=== PATIENT | female | born 1950 | race Caucasian/White ===

== ENCOUNTER 2019-06-20 20:46 | Observation (INO) ==
[2019-06-21 00:48] LABS: Albumin 3.6 G/DL (3.4-5.0); Bilirubin,Total 0.4 MG/DL (0.2-1.0); Calcium 8.6 MG/DL (8.5-10.1); Osmolality,Calculated 294.4 MOS/KG (273-304); Total Protein 7.1 G/DL (6.4-8.3)
[2019-06-21 01:00] LABS: Basophils % 0.1 % (0.0-0.8); Hematocrit 33.9 VOL% (35.7-47.0); Hemoglobin 10.2 GM/DL (12.0-16.0); Immature Granulocytes % 0.6 %; Immature Granulocytes Absolute 0.05 #; Lymphocytes # 2.3 10*3/uL (1.4-4.0); Lymphocytes % 29.3 % (21.3-54.2); Mean Corpuscular HGB Conc 30.1 GM/DL (32-36); Mean Corpuscular Volume 78.1 FL (87-102); Mean Platelet Volume 12.1 FL (9.6-12.0); Monocytes % 7.5 % (1.7-12.7); Neutrophils % 62.5 % (38.7-73.9); Platelet Count 173 T/CUMM (130-400); Red Blood Count 4.34 MC/CUMM (3.8-5.5); Red Cell Distribution Width 16.7 % (9.3-17.3)
[2019-06-21] MEDS ORDERED: MORPHINE 4 MG/1 ML VIAL IV PRN (01:50)
[2019-06-21] MEDS ORDERED: ONDANSETRON 4 MG/2 ML VIAL IV PRN (01:50)
[2019-06-21] MEDS ORDERED: ACETAMINOPHEN 325 MG TABLET PO PRN (01:50)
[2019-06-21] MEDS ORDERED: guaiFENesin 200 MG/10 ML UDCUP PO PRN (02:04)
[2019-06-21] MEDS ORDERED: ALPRAZolam 0.25 MG TABLET PO PRN (02:09)
[2019-06-21] MEDS ORDERED: ALBUTEROL/IPRATROPIUM 3 ML NEB RESP TX PRN (02:09)
[2019-06-21] MEDS ORDERED: SODIUM CHLORIDE 0.9% 1,000 ML IV SCH (02:30)
[2019-06-21] MEDS: ENOXAPARIN 40 MG/0.4 ML SYRINGE SUBCUT SCH (02:42)
[2019-06-21] MEDS ORDERED: traMADol 50 MG TABLET PO PRN (03:20)
[2019-06-21] MEDS ORDERED: NITROGLYCERIN SL 0.4 MG TABLET SL PRN (03:20)
[2019-06-21 03:38] LABS: Risk Ratio 5.13; Thyroid Stimulating Hormone 3.37 uIU/ml (0.358-3.74); VLDL CHOLESTEROL 38.2 MG/DL
[2019-06-21 05:24] LABS: Hematocrit 31.7 VOL% (35.7-47.0); Hemoglobin 9.5 GM/DL (12.0-16.0); Immature Granulocytes % 0.5 %; Immature Granulocytes Absolute 0.03 #; Lymphocytes % 29.9 % (21.3-54.2); Mean Corpuscular Volume 77.3 FL (87-102); Mean Platelet Volume 11.2 FL (9.6-12.0); Neutrophils % 62.6 % (38.7-73.9); Platelet Count 137 T/CUMM (130-400); Red Cell Distribution Width 16.6 % (9.3-17.3); White Blood Count 6.6 T/CUMM (4-12)
[2019-06-21 05:47] LABS: % Iron Saturation 11.6 % (18-50); Ferritin 27.1 ng/ml (8-252)
[2019-06-21] MEDS: LEVOTHYROXINE 100 MCG TABLET PO SCH (05:52)
[2019-06-21 06:26] LABS: Folate 8.2 NG/ML (5.4-24.0); Vitamin B12 354 PG/ML (211-911)
[2019-06-21 06:27] LABS: Sedimentation Rate-Westergren 43 MM/HR (0-30)
[2019-06-21 08:46] LABS: Calcium 8.1 MG/DL (8.5-10.1); Osmolality,Calculated 291.6 MOS/KG (273-304)
[2019-06-21] MEDS: GABAPENTIN 300 MG CAPSULE PO SCH ×2 (08:49→21:21)
[2019-06-21] MEDS: FERROUS SULFATE 325 MG TABLET PO SCH ×2 (08:49→21:21)
[2019-06-21] MEDS: PANTOPRAZOLE 40 MG TABLET PO SCH (08:50)
[2019-06-21] MEDS: METOPROLOL SUCCINATE XL 25 MG TABLET PO SCH (08:50)
[2019-06-21] MEDS: VENLAFAXINE XR 75 MG CAPSULE PO SCH (08:50)
[2019-06-21] MEDS: POTASSIUM CHLORIDE 20 MEQ TABLET PO PRN ×3 (11:45→16:06)
[2019-06-21] MEDS: BENZOCAINE/MENTHOL LOZENGE 18/BOX PO PRN (21:26)
[2019-06-22] MEDS: ENOXAPARIN 40 MG/0.4 ML SYRINGE SUBCUT SCH (01:45)
[2019-06-22 05:32] LABS: Hematocrit 30.4 VOL% (35.7-47.0); Hemoglobin 9.1 GM/DL (12.0-16.0); Immature Granulocytes % 0.6 %; Immature Granulocytes Absolute 0.04 #; Lymphocytes # 1.2 10*3/uL (1.4-4.0); Lymphocytes % 19.2 % (21.3-54.2); Mean Corpuscular HGB Conc 29.9 GM/DL (32-36); Mean Corpuscular Volume 77.4 FL (87-102); Mean Platelet Volume 11.7 FL (9.6-12.0); Monocytes % 8.2 % (1.7-12.7); Platelet Count 128 T/CUMM (130-400); Red Blood Count 3.93 MC/CUMM (3.8-5.5); Red Cell Distribution Width 16.6 % (9.3-17.3); White Blood Count 6.4 T/CUMM (4-12)
[2019-06-22] MEDS: LEVOTHYROXINE 100 MCG TABLET PO SCH (05:40)
[2019-06-22] MEDS: BENZOCAINE/MENTHOL LOZENGE 18/BOX PO PRN (05:42)
[2019-06-22 05:44] LABS: Calcium 7.6 MG/DL (8.5-10.1); Osmolality,Calculated 283.1 MOS/KG (273-304)
[2019-06-22] MEDS: GABAPENTIN 300 MG CAPSULE PO SCH (08:41)
[2019-06-22] MEDS: PANTOPRAZOLE 40 MG TABLET PO SCH (08:42)
[2019-06-22] MEDS: FERROUS SULFATE 325 MG TABLET PO SCH (08:42)
[2019-06-22] MEDS: METOPROLOL SUCCINATE XL 25 MG TABLET PO SCH (08:42)
[2019-06-22] MEDS: VENLAFAXINE XR 75 MG CAPSULE PO SCH (08:42)
[2019-06-22] MEDS ORDERED: FENOFIBRATE 160 MG TABLET PO SCH (09:00)
[2019-06-22] MEDS ORDERED: KETOROLAC 30 MG/1 ML VIAL IV ONE (09:37)
[2019-06-22 11:15] VITALS: BP 109/65
[2019-06-23 10:51] LABS: Hemoglobin A1 (Alkaline) 97.8 % (96.5-98.5); Hemoglobin A2 (Alkaline) 2.2 % (1.5-3.5)
== END 2019-06-22 13:54 | disposition home or self-care (01) ==
LOC: N.TELES → SUATTDRO 23:54
PROVIDERS: ADMIT Internal Medicine